=== PATIENT | male | born 1950 | race Caucasian/White ===

== ENCOUNTER 2017-10-27 06:49 | Observation (INO) | payer OTHER, BC ==
[~2017-10-27] VITALS: Ht 160 cm; Wt 63.0 kg
[2017-10-27 06:51] VITALS: BP 153/91; PULSE 59; RESP 16; TEMP 97.8; O2SAT 99
[2017-10-27 07:22] VITALS: BP 155/79; PULSE 71; RESP 15; O2SAT 100
[2017-10-27] MEDS ORDERED: ASPI-516 CHEW (07:22)
[2017-10-27] MEDS ORDERED: AMLO10TA2 PO (07:31)
[2017-10-27] MEDS ORDERED: FERR325T18 PO (07:31)
[2017-10-27] MEDS ORDERED: ALLO300T2 PO (07:31)
[2017-10-27] MEDS ORDERED: METO25TA3 PO (07:31)
[2017-10-27] MEDS ORDERED: METF850T PO (07:31)
[2017-10-27] MEDS ORDERED: ATOR20TA15 PO (07:31)
[2017-10-27] MEDS ORDERED: VITA100021 SL (07:31)
[2017-10-27] MEDS ORDERED: LISI40TA PO (07:31)
[2017-10-27] MEDS ORDERED: MAPA500T13 PO (07:31)
[2017-10-27] MEDS ORDERED: TEMA30CA PO (07:31)
[2017-10-27 07:37] VITALS: RESP 16; O2SAT 100
[2017-10-27] MEDS ORDERED: SODIUM CHLORIDE 0.9% FLUSH 10 ML FLUSH IVF PRN (07:45)
[2017-10-27] MEDS ORDERED: ASPIRIN 81 MG CHEW TAB PO ONE (07:45)
--- NOTE | 2017-10-27 08:01 | RADRPT ---
EXAM DATE/TIME: 10/27/2017 07:51 [place] COMPARISON: No previous studies available for comparison. INDICATIONS : Chest pressure and light headedness with history of cardiac stents. MEDICAL HISTORY : Cardiovascular disease. SURGICAL HISTORY : cardiac stents ENCOUNTER: Initial ACUITY: 1 week PAIN SCORE: 8/10 LOCATION: Bilateral upper chest pressure FINDINGS: Portable AP view of the chest demonstrates a normal-sized cardiac silhouette. No effusion, consolidat ion, or pneumothorax is visualized. The bones and soft tissues demonstrate no acute abnormality. EKG lines are present. CONCLUSION: No acute cardiopulmonary abnormality is identified. Dorian Rincon MD on October 27, 2017 at 7:57 Board Certified Radiologist. This report was verified electronically.
[2017-10-27 08:05] LABS: AUTOMATED NEUTROPHIL # 2.8 TH/MM3 (1.8-7.7); BASOPHIL % 0.5 % (0.0-2.0); EOSINOPHIL # 0.1 TH/MM3 (0-0.4); EOSINOPHIL % 1.5 % (0.0-4.0); HEMATOCRIT 39.7 % (39.0-51.0); HEMOGLOBIN 13.5 GM/DL (13.0-17.0); LYMPH % 36.5 % (9.0-44.0); LYMPHOCYTE # 1.9 TH/MM3 (1.0-4.8); MEAN CELL VOLUME 88.3 FL (80.0-100.0); MEAN PLATELET VOLUME 6.3 FL (7.0-11.0); MONO % 8.2 % (0.0-8.0); MONOCYTE # 0.4 TH/MM3 (0-0.9); NEUT % 53.3 % (16.0-70.0); PLATELET COUNT 266 TH/MM3 (150-450); RED BLOOD COUNT 4.49 MIL/MM3 (4.50-5.90); RED CELL DISTRIBUTION WIDTH 14.8 % (11.6-17.2); WHITE BLOOD COUNT 5.2 TH/MM3 (4.0-11.0)
[2017-10-27 08:12] LABS: INTERNATIONAL NORMALIZED RATIO 1.1 RATIO; PROTHROMBIN TIME - PATIENT 10.7 SEC (9.8-11.6)
--- NOTE | 2017-10-27 08:14 | PD ---
HPI Chief Complaint: Cardiac Complaint Time Seen by Provider: 07:35 Travel History International Travel<30 days: No Contact w/Intl Traveler<30days: No Traveled to known affect area: No History of Present Illness HPI 67-year-old male history of diabetes mellitus, hypertension, hyperlipidemia, coronary artery disease, presents today with complaints of left sided chest pain /pressure. Patient reports it as a 5 out of 10 on the pain scale. He reports it left sided with no radiation. There is no shortness of breath no diaphoresis no nausea. The patient had cardiac catheter in 2014 with 2 stents placed. He states he's been doing well since then. There is no exacerbating factors. The patient does report that it actually improved some with exertion. There are no other complaints time my examination. PFSH Past Medical History Cardiac Catheterization: Yes (SENTS X2 07/2015) High Cholesterol: Yes Diabetes: Yes Patient Takes Glucophage: Yes Diminished Hearing: No Gout: Yes Hypertension: Yes Insomnia: Yes Tetanus Vaccination: < 5 Years Influenza Vaccination: Yes Social History Alcohol Use: No Tobacco Use: No Substance Use: Yes (CANNABIS) Allergies-Medications (Allergen,Severity, Reaction): Coded Allergies: No Known Allergies (Unverified , 10/27/17) Reported Meds & Prescriptions Reported Meds & Active Scripts Active Reported Temazepam 30 Mg Cap 30 Mg PO HS PRN Atorvastatin (Atorvastatin Calcium) 20 Mg Tab 20 Mg PO HS Vitamin B-12 (Cyanocobalamin) 1,000 Mcg Subl 1,000 Mcg SL DAILY Ferrous Sulfate 325 Mg (65 Mg Iron) Tablet 325 Mg PO DAILY Metformin (Metformin HCl) 850 Mg Tab 850 Mg PO BIDPC Mapap Extra Strength (Acetaminophen) 500 Mg Tab 1,000 Mg PO BID PRN Allopurinol 300 Mg Tab 300 Mg PO DAILY Metoprolol Tartrate 25 Mg Tab 25 Mg PO DAILY Amlodipine (Amlodipine Besylate) 10 Mg Tab 10 Mg PO DAILY Lisinopril 40 Mg Tab 40 Mg PO DAILY Aspirin 81 Mg Chew 81 Mg CHEW DAILY Review of Systems Except as stated in HPI: all other systems reviewed are Neg General / Constitutional: No: Fever, Chills HENT: No: Headaches, Neck Pain Cardiovascular: Positive: Chest Pain or Discomfort, No: Palpitations, Irregular Rhythm Respiratory: No: Cough, Shortness of Breath Gastrointestinal: No: Nausea, Vomiting, Abdominal Pain Genitourinary: No: Frequency, Dysuria Musculoskeletal: No: Weakness, Pain Neurologic: No: Weakness, Dizziness, Headache Physical Exam Narrative GENERAL: Well developed well-nourished male in no acute rest her distress SKIN: Focused skin assessment warm/dry. HEAD: Atraumatic. Normocephalic. EYES: Pupils equal and round. No scleral icterus. No injection or drainage. ENT: No nasal bleeding or discharge. Mucous membranes pink and moist. NECK: Trachea midline. Supple. CARDIOVASCULAR: Regular rate and rhythm. No murmur appreciated. RESPIRATORY: No accessory muscle use. Clear to auscultation. Breath sounds equal bilaterally. GASTROINTESTINAL: Abdomen soft, non-tender, nondistended. Hepatic and splenic margins not palpable. MUSCULOSKELETAL: No obvious deformities. No clubbing. No cyanosis. No edema. NEUROLOGICAL: Awake and alert. No obvious cranial nerve deficits. Motor grossly within normal limits. Normal speech. PSYCHIATRIC: Appropriate mood and affect; insight and judgment normal. Data Data Last Documented VS Vital Signs Date Time Temp Pulse Resp B/P (MAP) Pulse Ox O2 Delivery O2 Flow Rate FiO2 10/27/17 07:37 16 100 Room Air 10/27/17 07:22 71 10/27/17 06:51 97.8 Orders Orders Electrocardiogram (10/27/17 07:35) Basic Metabolic Panel (Bmp) (10/27/17 07:35) Ckmb (Isoenzyme) Profile (10/27/17 07:35) Complete Blood Count With Diff (10/27/17 07:35) Magnesium (Mg) (10/27/17 07:35) Prothrombin Time / Inr (Pt) (10/27/17 07:35) Act Partial Throm Time (Ptt) (10/27/17 07:35) Troponin I (10/27/17 07:35) Chest, Single Ap (10/27/17 07:35) Ecg Monitoring (10/27/17 07:35) Bilateral Bp Monitoring (10/27/17 07:35) Iv Access Insert/Monitor (10/27/17 07:35) Oximetry (10/27/17 07:35) Oxygen Administration (10/27/17 07:35) Aspirin Chew (Aspirin Chew) (10/27/17 07:45) Sodium Chloride 0.9% Flush (Ns Flush) (10/27/17 07:45) CKMB (10/27/17 07:40) CKMB% (10/27/17 07:40) Admit Order (Ed Use Only) (10/27/17 08:56) Labs Laboratory Tests Test 10/27/17 07:40 White Blood Count 5.2 TH/MM3 Red Blood Count 4.49 MIL/MM3 Hemoglobin 13.5 GM/DL Hematocrit 39.7 % Mean Corpuscular Volume 88.3 FL Mean Corpuscular Hemoglobin 30.0 PG Mean Corpuscular Hemoglobin Concent 34.0 % Red Cell Distribution Width 14.8 % Platelet Count 266 TH/MM3 Mean Platelet Volume 6.3 FL Neutrophils (%) (Auto) 53.3 % Lymphocytes (%) (Auto) 36.5 % Monocytes (%) (Auto) 8.2 % Eosinophils (%) (Auto) 1.5 % Basophils (%) (Auto) 0.5 % Neutrophils # (Auto) 2.8 TH/MM3 Lymphocytes # (Auto) 1.9 TH/MM3 Monocytes # (Auto) 0.4 TH/MM3 Eosinophils # (Auto) 0.1 TH/MM3 Basophils # (Auto) 0.0 TH/MM3 CBC Comment DIFF FINAL Differential Comment Prothrombin Time 10.7 SEC Prothromb Time International Ratio 1.1 RATIO Activated Partial Thromboplast Time 25.2 SEC Blood Urea Nitrogen 14 MG/DL Creatinine 1.05 MG/DL Random Glucose 119 MG/DL Calcium Level 9.0 MG/DL Magnesium Level 1.6 MG/DL Sodium Level 137 MEQ/L Potassium Level 4.1 MEQ/L Chloride Level 103 MEQ/L Carbon Dioxide Level 26.1 MEQ/L Anion Gap 8 MEQ/L Estimat Glomerular Filtration Rate 70 ML/MIN Total Creatine Kinase 126 U/L Creatine Kinase MB 0.9 NG/ML Troponin I LESS THAN 0.02 NG/ML MDM Medical Decision Making Medical Screen Exam Complete: Yes Emergency Medical Condition: Yes Interpretation(s) Last 24 hours Impressions Chest X-Ray 10/27/17 0722 Signed Impressions: Service Date/Time: Friday, October 27, 2017 07:51 - CONCLUSION: No acute cardiopulmonary abnormality is identified. Dorian Rincon MD Differential Diagnosis ACS versus musculoskeletal pain versus pneumonia Narrative Course 67-year-old male with a history of coronary artery disease, hypertension, diabetes mellitus, hyperlipidemia, who presents today with complaints of left sided chest pressure. He reports it as a 5 out of 10 on the pain scale. The patient's EKG and first set of cardiac enzymes are within normal limits. Given the patient's cardiac history as well as risk factors, we'll place him in the chest pain center for rule out protocol. I discussed this with the patient and he is amenable. Diagnosis Primary Impression: Chest pain Additional Impressions: Coronary artery disease Diabetes mellitus Hyperlipidemia Hypertension Admitting Information Admitting Physician Requests: Observation Francis Quesada MD Oct 27, 2017 08:14
[2017-10-27 08:21] LABS: BICARBONATE 26.1 MEQ/L (21.0-32.0); BLOOD UREA NITROGEN 14 MG/DL (7-18); CHLORIDE 103 MEQ/L (98-107); CREATININE 1.05 MG/DL (0.60-1.30); GLOMERULAR FILTRATION RATE 70 ML/MIN (>89); GLUCOSE,RANDOM 119 MG/DL (74-106); MAGNESIUM 1.6 MG/DL (1.5-2.5); SODIUM (NA) 137 MEQ/L (136-145)
[2017-10-27 08:26] LABS: TROPONIN I LESS THAN 0.02 NG/ML (0.02-0.05)
--- NOTE | 2017-10-27 10:20 | HHI.HP ---
HPI Primary Care Physician PCP in [place] Chief Complaint Chest pressure History of Present Illness 67-year-old male with known coronary artery disease, x2 cardiac stents, hyperlipidemia, hypertension, and diabetes presents emergency room for further evaluation of nonexertional chest pressure. Onset months. Location substernal. Characterized as pressure. No radiation. No associated symptoms of nausea, vomiting, dyspnea, or diaphoresis. Endorses an active lifestyle, noting chest pressure resolved with exercise and activity. Chest pressure more noticeable during rest and laying down. Denies chest discomfort being similar prior to need of cardiac stents. Review of Systems General: No fatigue,weakness, fever, chills, recent illness, or change in appetite. Has been his general health. Endorses he does not drink many fluids, reporting drinking x2 diet cokes daily only. HEENT: No KIMBLE, no vision changes, no nasal congestion or drainage, no dysphasia. Recently seen by ENT for positional dizziness, no findings indicated cause for dizziness. CV: As stated above. No current chest pain or pressure. Denies palpitations. Positional dizziness few months, not always accompanied with chest discomfort. RESP: No SOB, cough, wheeze, or recent URI. GI: No nausea, vomiting, bowel changes, diarrhea, constipation, pain, distention , melena, blood in the stool. No change in appetite, no unintentional weight gain or weight loss. : No dysuria, urgency, frequency EXT: No lower leg edema, no paraesthesias MS: No discomfort or change in ROM. No recent injury or trauma. NEURO: No change in memory, difficulty with balance, LOC, or motor/sensory deficits PSYCH: No anxiety or depression, however reports "worrying a lot" due to fact he is currently living alone and remains up [place]. SKIN: No rashes, no concerning lesions Past Family Social History Allergies: Coded Allergies: No Known Allergies (Unverified , 10/27/17) Past Medical History Hypertension, hyperlipidemia, diabetes type 2, coronary artery disease, 2 cardiac stents, gout Past Surgical History x2 cardiac stents Reported Medications Reported Meds & Active Scripts Active Reported Temazepam 30 Mg Cap 30 Mg PO HS PRN Atorvastatin (Atorvastatin Calcium) 20 Mg Tab 20 Mg PO HS Vitamin B-12 (Cyanocobalamin) 1,000 Mcg Subl 1,000 Mcg SL DAILY Ferrous Sulfate 325 Mg (65 Mg Iron) Tablet 325 Mg PO DAILY Metformin (Metformin HCl) 850 Mg Tab 850 Mg PO BIDPC Mapap Extra Strength (Acetaminophen) 500 Mg Tab 1,000 Mg PO BID PRN Allopurinol 300 Mg Tab 300 Mg PO DAILY Metoprolol Tartrate 25 Mg Tab 25 Mg PO DAILY Amlodipine (Amlodipine Besylate) 10 Mg Tab 10 Mg PO DAILY Lisinopril 40 Mg Tab 40 Mg PO DAILY Aspirin 81 Mg Chew 81 Mg CHEW DAILY Active Ordered Medications Current Medications Medications (Trade) Dose Ordered Sig/Leonidas Route Start Time Stop Time Status Last Admin (NS Flush) 2 ml UNSCH PRN IVF 10/27/17 07:45 Social History Known coronary artery disease, diabetes, hypertension, and hyperlipidemia. Quit smoking 27 years ago. Denies alcohol or illegal drug use. Endorses active lifestyle, exercising daily. . Lives part-time between [place] and [place]. Past cardiac testing No recent stress testing. Seen lens gauger prior to arrival to [place] x2 cardiac stents placed in [place] (2014). Reported x1 week of dyspnea and left anterior chest pain, notified his PCP, and completed exercise stress test. Report positive stress testing, therefore cardiac catheterization completed. Physical Exam Vital Signs Vital Signs Date Time Temp Pulse Resp B/P (MAP) Pulse Ox O2 Delivery O2 Flow Rate FiO2 10/27/17 07:37 16 100 Room Air 10/27/17 07:22 71 15 155/79 (104) 100 Room Air 10/27/17 07:17 100 Room Air 10/27/17 06:51 97.8 59 16 153/91 (111) 99 Room Air Physical Exam GENERAL: Alert WN, WD, NAD, pleasant, male HEAD: NC, AT EYES: Sclera clear, conjunctiva without injection, pupils equal and round ENT: Mucous membranes pink and moist CV: RRR, without murmur, rub, gallop, no JVD, S1-S2 no S3-S4. Chest wall nontender with palpation. RESP: Clear lungs throughout bilateral, no crackles, wheeze, rhonchi, symmetrical chest rise, nonlabored, able to speak in full sentences ABD: Soft, NT, ND, no masses, positive bowel tones EXT: Pulses +24, no dependent edema MS: Normal tone 4 extremities, no obvious deformities, full range of motion NEURO: CN II through CN XII grossly intact, motor strength 5/5, gait WNL PSYCH: A+O 3, pleasant affect, appropriate speech, mood, insight and judgment SKIN: Normal turgor, normal texture, no lesions, no rashes, brisk cap refill, even hair distribution Laboratory Laboratory Tests Test 10/27/17 07:40 White Blood Count 5.2 Red Blood Count 4.49 Hemoglobin 13.5 Hematocrit 39.7 Mean Corpuscular Volume 88.3 Mean Corpuscular Hemoglobin 30.0 Mean Corpuscular Hemoglobin Concent 34.0 Red Cell Distribution Width 14.8 Platelet Count 266 Mean Platelet Volume 6.3 Neutrophils (%) (Auto) 53.3 Lymphocytes (%) (Auto) 36.5 Monocytes (%) (Auto) 8.2 Eosinophils (%) (Auto) 1.5 Basophils (%) (Auto) 0.5 Neutrophils # (Auto) 2.8 Lymphocytes # (Auto) 1.9 Monocytes # (Auto) 0.4 Eosinophils # (Auto) 0.1 Basophils # (Auto) 0.0 CBC Comment DIFF FINAL Differential Comment Prothrombin Time 10.7 Prothromb Time International Ratio 1.1 Activated Partial Thromboplast Time 25.2 Blood Urea Nitrogen 14 Creatinine 1.05 Random Glucose 119 Calcium Level 9.0 Magnesium Level 1.6 Sodium Level 137 Potassium Level 4.1 Chloride Level 103 Carbon Dioxide Level 26.1 Anion Gap 8 Estimat Glomerular Filtration Rate 70 Total Creatine Kinase 126 Creatine Kinase MB 0.9 Troponin I LESS THAN 0.02 Result Diagram: 10/27/1740 10/27/17 0740 Imaging Last 48 hours Impressions Chest X-Ray 10/27/17 0735 Signed Impressions: Service Date/Time: Friday, October 27, 2017 07:51 - CONCLUSION: No acute cardiopulmonary abnormality is identified. Dorian Rincon MD Course EKG Normal sinus rhythm, normal axis, no ST or T-segment changes Caprini VTE Risk Assessment Caprini VTE Risk Assessment: Mod/High Risk (score >= 2) Caprini Risk Assessment Model Point Value = 1 Point Value = 2 Point Value = 3 Point Value = 5 Age 41-60 Minor surgery BMI > 25 kg/m2 Swollen legs Varicose veins or History of unexplained or recurrent spontaneous Oral contraceptives or hormone replacement Sepsis (< 1 month) Serious lung disease, including pneumonia (< 1 month) Abnormal pulmonary function Acute myocardial infarction Congestive heart failure (< 1 month) History of inflammatory bowel disease Medical patient at bed rest Age 61-74 Arthroscopic surgery Major open surgery (> 45 min) Laparoscopic surgery (> 45 min) Malignancy Confined to bed (> 72 hours) Immobilizing plaster cast Central venous access Age >= 75 History of VTE Family history of VTE Factor V Leiden Prothrombin [id number] Lupus anticoagulant Anticardiolipin antibodies Elevated serum homocysteine Heparin-induced thrombocytopenia Other congenital or acquired thrombophilia Stroke (< 1 month) Elective arthroplasty Hip, pelvis, or leg fracture Acute spinal cord injury (< 1 month) Prophylaxis Regimen Total Risk Factor Score Risk Level Prophylaxis Regimen 0-1 Low Early ambulation 2 Moderate Order ONE of the following: *Sequential Compression Device (SCD) *Heparin 5000 units SQ BID 3-4 Higher Order ONE of the following medications: *Heparin 5000 units SQ TID *Enoxaparin/Lovenox 40 mg SQ daily (WT < 150 kg, CrCl > 30 mL/min) *Enoxaparin/Lovenox 30 mg SQ daily (WT < 150 kg, CrCl > 10-29 mL/min) *Enoxaparin/Lovenox 30 mg SQ BID (WT < 150 kg, CrCl > 30 mL/min) AND/OR *Sequential Compression Device (SCD) 5 or more Highest Order ONE of the following medications: *Heparin 5000 units SQ TID (Preferred with Epidurals) *Enoxaparin/Lovenox 40 mg SQ daily (WT < 150 kg, CrCl > 30 mL/min) *Enoxaparin/Lovenox 30 mg SQ daily (WT < 150 kg, CrCl > 10-29 mL/min) *Enoxaparin/Lovenox 30 mg SQ BID (WT < 150 kg, CrCl > 30 mL/min) AND *Sequential Compression Device (SCD) Assessment and Plan Assessment and Plan #1 Atypical chest pain-admitted to chest pain center. Ruled out with 1 set of EKGs and cardiac enzymes. Seen and evaluated by Dr. Sal Santos. Discomfort highly unlikely to be cardiac related, proceed with exercise stress test. If unremarkable, plan to discharge home. Encouraged [facility] if discomfort persists. Patient agreeable to plan of care. Discussed in length importance of increasing fluid intake and for possible resolution of positional dizziness. #2 History of CAD-continue home medications as previously instructed Karen Montano Oct 27, 2017 10:20
[2017-10-27] MEDS ORDERED: NITROGLYCERIN 0.4 MG SL 25 TABS/BTL SL PRN (10:30)
[2017-10-27] MEDS ORDERED: ACETAMINOPHEN 500 MG CPLT PO PRN (10:30)
[2017-10-27] MEDS ORDERED: ONDANSETRON HCL 4 MG/2 ML VIAL IV PUSH PRN (10:30)
[2017-10-27 10:55] VITALS: BP 141/79; PULSE 67; RESP 14; O2SAT 99
--- NOTE | 2017-10-27 12:51 | HHI.DCPOC ---
Discharge Care Plan Diagnosis: (1) Atypical chest pain (2) Hx of coronary artery disease Goals to Promote Your Health * To prevent worsening of your condition and complications * To maintain your health at the optimal level Directions to Meet Your Goals Take your medications as prescribed Follow your dietary instruction Follow activity as directed Keep your appointments as scheduled Take your immunizations and boosters as scheduled If your symptoms worsen call your PCP, if no PCP go to Urgent Care Center or Emergency Room Smoking is Dangerous to Your Health. Avoid second hand smoke Call the 24-hour hour crisis hotline for domestic abuse at Karen Montano Oct 27, 2017 12:50
[2017-10-27 13:00] VITALS: BP 141/78; PULSE 85; RESP 18; TEMP 98.1; O2SAT 98
--- NOTE | 2017-10-27 14:57 | EKG ---
Date Performed: 10/27/2017 Time Performed: 11:00:13 PTAGE: 67 years EKG: Sinus rhythm NORMAL ECG PREVIOUS TRACING : 10/27/2017 07.18 DOCTOR: Sal Santos Interpretating Date/Time 10/27/2017 14:55:06
--- NOTE | 2017-10-27 14:58 | EKG ---
Date Performed: 10/27/2017 Time Performed: 07:18:53 PTAGE: 67 years EKG: Sinus rhythm NORMAL ECG NO PREVIOUS TRACING DOCTOR: Sal Santos Interpretating Date/Time 10/27/2017 14:56:08
--- NOTE | 2017-10-27 15:31 | TR ---
Date Performed: 10/27/2017 Time Performed: 12:00:53 DOCTOR: Sal Santos DRUG LIST: CLINICAL HISTORY: REASON FOR TEST: Chest pain REASON FOR ENDING: OBSERVATION: CONCLUSION: Modified michaela protocol completed. Stopped sec to exceeding target heart rate and le g fatigue.Maximum UC=170 Target HR Achieved=85.0% Maximum IL=512/100 Total Exercise Time=10:49. No re prod chest pain. No ectopy. No st segment changes to sugg ischemia. Great exercise tolerance. Normal bp response. Recovery quick and unremarkable. COMMENTS: Patient exercised using the Michaela protocol. No electrocardiographic changes were seen to suggest ischemia. Hemodynamic response to exercise was normal. No significant arrhythmia was prese nt.
[2017-10-27] MEDS ORDERED: SODIUM CHLORIDE 0.9% FLUSH 10 ML FLUSH IV FLUSH SCH (21:00)
[2017-10-28] MEDS ORDERED: ASPIRIN 325 MG TAB PO SCH (09:00)
== END 2017-10-27 14:58 | disposition home or self-care (01) ==
LOC: NEPE 06:49 → NEDA 08:58 → NEPHCDU 12:24
PROVIDERS: ADMIT Internal Medicine Cardiovascular Disease; ATTEND Internal Medicine Cardiovascular Disease
DX: R07.89 Other chest pain (principal); R06.00 Dyspnea, unspecified; R42 Dizziness and giddiness; I25.10 Atherosclerotic heart disease of native coronary artery without angina pectoris; I10 Essential (primary) hypertension; E78.00 Pure hypercholesterolemia, unspecified; E11.9 Type 2 diabetes mellitus without complications; Z95.5 Presence of coronary angioplasty implant and graft; Z87.891 Personal history of nicotine dependence; Z79.899 Other long term (current) drug therapy; Z79.82 Long term (current) use of aspirin; Z79.84 Long term (current) use of oral hypoglycemic drugs
CPT/HCPCS: 71045; 80048; 82550; 82552; 83735; 84484; 85025; 85610; 85730; 93005; 93017; 99285; G0378